=== PATIENT | female | born 1970 | race Two or more races ===

== ENCOUNTER 2019-08-12 22:22 | Emergency (ER) | payer SELFPAY ==
[~2019-08-12] VITALS: Ht 157.5 cm; Wt 82.7 kg
[2019-08-12 22:40] VITALS: BP 148/76
--- NOTE | 2019-08-12 22:55 | PHYS DOC ---
Adult General Chief Complaint Chief Complaint: SKIN PROBLEM HPI HPI Patient is a 49 year old female who presents with body itching, rash for the past hour. Patient reports she has felt her body flushed, itching, and has noticed some spots all over. States she never had this happen before. States she taken some vitamins for her tonight, which she takes every night, however she had one changed, reporting a set of taking a fish oil like she normally does she had taken an [place] vitamin. Denies any other change in soaps, foods, or medications. States she has not taken any medications for this itching tonight. Denies shortness of breath. Denies fever. Denies additional concerns Review of Systems Review of Systems Constitutional: Denies fever or chills [] ] Respiratory: Denies cough or shortness of breath [] Cardiovascular: No additional information not addressed in HPI [] GI: Denies abdominal pain, nausea, vomiting, bloody stools or diarrhea [] : Denies dysuria or hematuria [] Musculoskeletal: Denies back pain or joint pain [] Integument: Reports rash, denies skin lesions[] Neurologic: Denies headache, focal weakness or sensory changes [] Endocrine: Denies polyuria or polydipsia [] All other systems were reviewed and found to be within normal limits, except as documented in this note. Current Medications Current Medications Current Medications Medications (Trade) Dose Ordered Sig/Chito Start Time Stop Time Status Last Admin Dose Admin Diphenhydramine HCl (Benadryl) 50 mg 1X ONCE 08/12/19 23:00 08/12/19 23:01 DC 08/12/19 23:02 50 MG Methylprednisolone Acetate (DEPO-Medrol 80MG VIAL) 80 mg 1X ONCE 08/12/19 23:00 08/12/19 23:01 DC 08/12/19 23:02 80 MG Allergies Allergies Allergies Coded Allergies Type Severity Reaction Last Updated Verified No Known Drug Allergies 08/12/19 No Physical Exam Physical Exam Constitutional: Well developed, well nourished, no acute distress, non-toxic appearance. [] Cardiovascular:Heart rate regular rhythm, no murmur [] Lungs & Thorax: Bilateral breath sounds clear to auscultation [] Abdomen: Bowel sounds normal, soft, no tenderness, no masses, no pulsatile richie s. [] Skin: Warm, dry, erythema noted to torso, extremities. No specific macular rash identified. Skin normal temperature. No lesions noted.. [] Back: No tenderness, no CVA tenderness. [] Extremities: No tenderness, no cyanosis, no clubbing, ROM intact, no edema. [] Neurologic: Alert and oriented X 3, normal motor function, normal sensory function, no focal deficits noted. [] Psychologic: Affect normal, judgement normal, mood normal. [] Current Patient Data Vital Signs Vital Signs Date Time Temp Pulse Resp B/P (MAP) Pulse Ox O2 Delivery O2 Flow Rate FiO2 08/12/19 22:40 98.1 72 22 148/76 (100) 99 Room Air 98.1 EKG EKG [] Radiology/Procedures Radiology/Procedures [] Course & Med Decision Making Course & Med Decision Making Pertinent Labs and Imaging studies reviewed. (See chart for details) [Discussed findings with patient, with concern over reaction due to her vitamins and the new omega which may have caused her to feel flushed tonight. We'll treat for allergic reaction to decrease histamine reaction. Patient agreement with this plan] Following medications, patient remains resting calmly in room, states she feels much better, has less erythema and itching. Discussed with patient importance of no longer taking the omega pill which seemed to be the one that caused her reaction tonight. May consider taking Benadryl again tomorrow morning as needed. Patient agreement with this plan, no further questions or concerns. States she feels much better Dragon Disclaimer Dragon Disclaimer This electronic medical record was generated, in whole or in part, using a voice recognition dictation system. Departure Departure Impression: Primary Impression: Allergic dermatitis Disposition: 01 HOME, SELF-CARE Condition: GOOD Referrals: NO PCP (PCP) Patient Instructions: Drug Allergy, [id number] Additional Instructions: Estela hablemos, si sigue con picason, puede rubén un benadryl en la manana, Si no, no tenga que rubén nada. Recomendamos que no bonita el [place] algo mas porque tuan puede causar otro reaccion y mas picason. Sigue con [facility] si necesita. / As we discussed, if you continue itching in the morning, you may take another benadryl in the morning. If not, you don't need to take any thing. We do recomend you do not take the [place] tablet anymore because this can cause another similar reaction and more itching. Follow up with your PCP as needed MISSAEL AGUDELO APRN Aug 12, 2019 22:55
[2019-08-12] MEDS ORDERED: diphenhydrAMINE HCL 25 MG CAPSULE PO ONE (23:00)
[2019-08-12] MEDS ORDERED: methylPREDNISolone ACETATE 80 MG/ML VIAL. IM ONE (23:00)
== END 2019-08-12 23:32 | disposition home or self-care (01) ==
LOC: ER 22:22
DX: L23.89 Allergic contact dermatitis due to other agents (principal); R21 Rash and other nonspecific skin eruption; L29.9 Pruritus, unspecified
CPT/HCPCS: 96372; 99283; J1040; Q0163